=== PATIENT | male | born 2000 | race Asian ===

== ENCOUNTER 2019-11-04 02:45 | Emergency (ER) | payer OTHER ==
[2019-11-04] MEDS ORDERED: NS 0.9% 1000 ML** 1,000 ML IV ONE (02:49)
[2019-11-04] MEDS ORDERED: Pantoprazole IV* 40 MG IV ONE (02:50)
[2019-11-04] MEDS ORDERED: Ondansetron INJ* 2 MG/ML VIAL IV ONE (02:50)
[2019-11-04] MEDS ORDERED: Lorazepam PYXIS KEY PRN ×2 (02:56→03:12)
[2019-11-04] MEDS ORDERED: LORazepam INJ* 2 MG/ML 1 ML VIAL IM ONE ×2 (02:56→03:12)
[2019-11-04] MEDS ORDERED: Lorazepam PYXIS KEY ONE ×2 (02:57→03:14)
[2019-11-04] MEDS ORDERED: LORazepam INJ* 2 MG/ML 1 ML VIAL ONE (02:58)
[2019-11-04 04:03] LABS: ABS Eosinophils 0.1 10^3/ul (0-0.6); ABS Lymphocytes 1.4 10^3/ul (1.0-4.8); ABS Monocytes 0.4 10^3/ul (0-0.8); ABS Neutrophils 2.5 10^3/ul (1.5-7.7); Eosinophil % 1.9 %; Hematocrit 38 % (42-52); Hemoglobin 12.8 g/dL (14.0-18.0); Lymphocyte % 31.5 %; Mean Corpuscular HGB Conc 34 g/dL (31-36); Mean Corpuscular Hemoglobin 29 pg (27-31); Mean Corpuscular Volume 86 fL (80-94); Mean Platelet Volume 8.5 fL (7.4-10.4); Nucleated Red Blood Cells % 0.1; Platelet Count 140 10^3/uL (150-450); Red Blood Count 4.38 10^6 /uL (4.18-5.48); Red Cell Distribution Width 13 % (10-15); White Blood Count 4.4 10^3/uL (3.5-10.8)
[2019-11-04 04:20] LABS: ALT 16 U/L (7-52); AST 17 U/L (13-39); Albumin 4.4 g/dL (3.2-5.2); Albumin/Globulin Ratio 2.1 (1-3); Alkaline Phosphatase 37 U/L (34-104); Anion Gap 11 mmol/L (2-11); BUN/Creatinine Ratio 26.7 (8-20); Blood Urea Nitrogen 20 mg/dL (6-24); CO2 Carbon Dioxide 23 mmol/L (22-32); Calcium 8.2 mg/dL (8.6-10.3); Chloride 107 mmol/L (101-111); EGFR African American 159.1 (>60); EGFR Non-African American 131.5 (>60); Globulin 2.1 g/dL (2-4); Glucose 123 mg/dL (70-100); Potassium 3.4 mmol/L (3.5-5.0); Sodium 141 mmol/L (135-145); Total Protein 6.5 g/dL (6.4-8.9)
[2019-11-04 04:26] LABS: Alcohol 328 mg/dL (<10); Salicylate < 2.50 mg/dL (<30)
[2019-11-04 04:28] LABS: Acetaminophen < 15 mcg/mL
--- NOTE | 2019-11-04 06:02 | ED ---
Substance Abuse/Use - HPI Summary HPI Summary: Level 5 Caveat - Unresponsive This patient is a 19 year old M presenting to [facility] by EMS with a chief complaint of alcohol intoxication since prior to arrival. - History Of Current Complaint Chief Complaint: EDSubstanceAbuse Stated Complaint: ETOH PER EMS Time Seen by Provider: 11/04/19 02:48 Hx From Patient Unobtainable Due To: Other - Level 5 Caveat - Unresponsive Onset/Duration of Drug/ETOH Abuse: Hours Ingestion History: Type/Name Of Drug - EtOH Overdose Characteristics: Oral Timing Of Abuse: Binge Use Character: Other - Combative PMH/Surg Hx/FS Hx/Imm Hx Previously Healthy: No - Level 5 Caveat - Unresponsive - Surgical History Surgical History: Unable to Obtain/Confirm - Level 5 Caveat - Unresponsive Infectious Disease History: Unable to Obtain/Confirm Infectious Disease History: Denies: Traveled Outside the [place] in Last 30 Days - Family History Known Family History: Positive: Unknown - Level 5 Caveat - Unresponsive - Additional Comments History Additional Comments: Level 5 Caveat - Unresponsive Review of Systems Positive: Vomiting, Nausea All Other Systems Reviewed And Are Negative: No - Comments Additional Review of Systems Comments: Level 5 Caveat - Unresponsive Physical Exam - Summary Physical Exam Summary: Level 5 Caveat - Unresponsive General: Well-developed, Well-nourished male. No acute distress. Emesis on clothes HEENT: Normocephalic, Atraumatic. Eyes: Conjuctiva normal, PERRL. Oropharynx: Clear, mucous membranes moist, (-) exudates. Neck: Soft, FROM, (-) lymphadenopathy, (-) thyromegaly, (-) JVD. Cardiovascular: Normal sinus rhythm, (-) murmur. Lungs: Clear to auscultation bilaterally (-) wheezes, (-) rales, (-) rhonchi. Abdomen: Soft, non-tender, non-distended, (-) organomegaly, normal bowel sounds. Back: (-) CVA tenderness Extremities: No edema. Skin: Warm, dry, (-) rash. Neuro: Alert and oriented x3, no focal deficits. Slurs words Psychiatric: Labile Mood lethargic to agitated, affect normal. Triage Information Reviewed: Yes Vital Signs On Initial Exam: Initial Vitals Temp Pulse Resp BP Pulse Ox 96.8 F 87 18 102/69 97 11/04/19 02:49 11/04/19 02:49 11/04/19 02:49 11/04/19 02:49 11/04/19 02:49 Vital Signs Reviewed: Yes Procedures - Sedation Patient Received Moderate/Deep Sedation with Procedure: No Diagnostics - Vital Signs Vital Signs Temp Pulse Resp BP Pulse Ox 11/04/19 05:24 78 97/45 100 11/04/19 05:00 84 89 11/04/19 04:54 79 93/40 97 11/04/19 04:24 78 95/42 98 11/04/19 04:00 76 99 11/04/19 03:54 71 99/56 99 11/04/19 03:39 66 97/54 99 11/04/19 03:31 64 99/62 98 11/04/19 03:23 76 85 11/04/19 03:17 14 11/04/19 03:03 10 11/04/19 02:49 96.8 F 87 18 102/69 97 - Laboratory Lab Results: Lab Results 11/04/19 11/04/19 11/04/19 Range/Units 03:51 03:51 03:51 WBC 4.4 (3.5-10.8) 10^3/uL RBC 4.38 (4.18-5.48) 10^6 /uL Hgb 12.8 L (14.0-18.0) g/dL Hct 38 L (42-52) % MCV 86 (80-94) fL MCH 29 (27-31) pg MCHC 34 (31-36) g/dL RDW 13 (10-15) % Plt Count 140 L (150-450) 10^3/uL MPV 8.5 (7.4-10.4) fL Neut % (Auto) 57.1 % Lymph % (Auto) 31.5 % [place] % (Auto) 9.0 % Eos % (Auto) 1.9 % Baso % (Auto) 0.5 % Absolute Neuts (auto) 2.5 (1.5-7.7) 10^3/ul Absolute Lymphs (auto) 1.4 (1.0-4.8) 10^3/ul Absolute Monos (auto) 0.4 (0-0.8) 10^3/ul Absolute Eos (auto) 0.1 (0-0.6) 10^3/ul Absolute Basos (auto) 0.0 (0-0.2) 10^3/ul Absolute Nucleated RBC 0.0 10^3/ul Nucleated RBC % 0.1 Sodium 141 (135-145) mmol/L Potassium 3.4 L (3.5-5.0) mmol/L Chloride 107 (101-111) mmol/L Carbon Dioxide 23 (22-32) mmol/L Anion Gap 11 (2-11) mmol/L BUN 20 (6-24) mg/dL Creatinine 0.75 (0.67-1.17) mg/dL Est GFR ( Amer) 159.1 (>60) Est GFR (Non-Af Amer) 131.5 (>60) BUN/Creatinine Ratio 26.7 H (8-20) Glucose 123 H (70-100) mg/dL Lactic Acid 2.5 H* (0.5-2.0) mmol/L Calcium 8.2 L (8.6-10.3) mg/dL Total Bilirubin 0.50 (0.2-1.0) mg/dL AST 17 (13-39) U/L ALT 16 (7-52) U/L Alkaline Phosphatase 37 (34-104) U/L Total Protein 6.5 (6.4-8.9) g/dL Albumin 4.4 (3.2-5.2) g/dL Globulin 2.1 (2-4) g/dL Albumin/Globulin Ratio 2.1 (1-3) Salicylates < 2.50 (<30) mg/dL Acetaminophen < 15 mcg/mL Serum Alcohol 328 H (<10) mg/dL Result Diagrams: 11/04/19 03:51 11/04/19 03:51 Lab Statement: Any lab studies that have been ordered have been reviewed, and results considered in the medical decision making process. Re-Evaluation - Re-Evaluation First Eval Re-Evaluation Time: 07:33 Comment: Pt is sleeping comfortable, vitals are stable, still intoxicated. Course/Dx - Course Course Of Treatment: 19 year old male presents with acute alcohol intoxication. he is agitated and combative. initially placed in restraints and given ativan. he is signed out at change of shift awaiting sobriety and disposition. - Diagnoses Provider Diagnoses: Acute alcohol intoxication, Acute vomiting Discharge ED - Sign-Out/Discharge Documenting (check all that apply): Sign-Out Patient Signing out patient TO: Demarcus Robles - pending sobriety - Discharge Plan Condition: Stable Disposition: HOME Patient Education Materials: Alcohol Intoxication (ED) Referrals: [facility] [Outside] - 3 Days Additional Instructions: Please follow up with your primary care provider within 3 days. Please return to the ED for any new or worsening symptoms. - Billing Disposition and Condition Condition: STABLE Disposition: Home - Attestation Statements Document Initiated by Simranibe: Yes Documenting Scribe: Gema Quiroz Provider For Whom Louis is Documenting (Include Credential): Dr. Nuvia Mccallum MD Scribe Attestation: Gema Black scribed for Dr. Nuvia Mccallum MD on 11/07/19 at 1955. Scribe Documentation Reviewed: Yes Provider Attestation: The documentation as recorded by the Gema soto accurately reflects the service I personally performed and the decisions made by me, Dr. Nuvia Mccallum MD Status of Scribe Document: Viewed
--- NOTE | 2019-11-04 07:02 | ED ---
Progress - Progress Note Progress Note: This pt is a sign out from Dr. Mccallum @ the [facility] 11/04/2019 shift change pending sobriety and disposition. This patient is a 19 year old M presenting to [facility] by EMS with a chief complaint of alcohol intoxication since prior to arrival. Re-Evaluation - Re-Evaluation First Eval Re-Evaluation Time: 07:33 Comment: Pt is sleeping comfortable, vitals are stable, still intoxicated. Course/Dx - Course Course Of Treatment: This pt is a sign out from Dr. Mccallum @ the [facility] 11/04/2019 shift change pending sobriety and disposition. . This patient was signed out by Dr. Mccallum at shift change. The patient this with alcohol intoxication. Patient is resting comfortably. He is hemodynamically stable. This patient is alert and oriented 3, he is eating and drinking, is ambulating with a steady walk. Therefore the patient is sober. Patient is discharged with his roommate. - Diagnoses Provider Diagnoses: Acute alcohol intoxication, Acute vomiting Discharge ED - Sign-Out/Discharge Documenting (check all that apply): Patient Departure - discharge, Receiving Sign-Out Signing out patient TO: Demarcus Robles Receiving patient FROM: Nuvia Mccallum - Discharge Plan Condition: Stable Disposition: HOME Patient Education Materials: Alcohol Intoxication (ED) Referrals: [facility] [Outside] - 3 Days Additional Instructions: Please follow up with your primary care provider within 3 days. Please return to the ED for any new or worsening symptoms. - Billing Disposition and Condition Condition: STABLE Disposition: Home - Attestation Statements Document Initiated by Scribe: Yes Documenting Scribe: Adis Mckeon Provider For Whom Scribe is Documenting (Include Credential): Demarcus Robles MD Scribe Attestation: IAdis, scribed for Demarcus Robles MD on 11/05/19 at 1535. Scribe Documentation Reviewed: Yes Provider Attestation: The documentation as recorded by the scribe, Adis Mckeon accurately reflects the service I personally performed and the decisions made by me, Demarcus Robles MD Status of Scribe Document: Viewed
[2019-11-04 13:44] VITALS: BP 114/60
== END 2019-11-04 13:51 | disposition home or self-care (01) ==
LOC: EDBD → ED 02:45
DX: F10.929 Alcohol use, unspecified with intoxication, unspecified (principal); R11.10 Vomiting, unspecified
CPT/HCPCS: 36415; 80053; 80320; 80329; 83605; 85025; 96361; 96372; 96374; 96375; 99283; G0480; J2060; J2405